=== PATIENT | male | born 1990 | race Caucasian/White ===

== ENCOUNTER 2022-12-18 18:36 | Emergency (ER) | payer SELFPAY ==
--- NOTE | 2022-12-18 18:39 | ED.LOWEXIN ---
HPI - Extremity Injury (Lower) General Chief Complaint: Extremity Injury, Lower Stated Complaint: rt ankle injury while playing basketball Time Seen by Provider: 12/18/22 18:39 History of Present Illness HPI Narrative: 32-year-old male with noncontributory medical history presents with a significant other and a chief complaint right foot and ankle pain since an injury while playing basketball earlier today. He was playing with some friends and stepped awkwardly on his right foot and ankle and rolled it laterally and felt a sharp and stabbing pain on the dorsum of his foot and his ankle. Denies any history of the same. Denies any knee or hip pain. Denies numbness, tingling or weakness. His pain is worse when he ambulates and improves with rest. He denies dizziness, weakness or lightheadedness. He has no chest pain or shortness of breath. Denies abdominal pain, nausea, vomiting or diarrhea. Related Data Allergies Allergy/AdvReac Type Severity Reaction Status Date / Time No Known Drug Allergies Allergy Verified 12/18/22 18:46 Review of Systems Review of Systems Narrative: GENERAL: Denies chills, fatigue, malaise, fever, sweats. HEENT: Denies sinus pain, ear pain, sore throat, difficulty swallowing, dizziness. RESPIRATORY: Denies dyspnea, cough, wheezing, hemoptysis, sputum. CARDIOVASCULAR: Denies chest pain, palpitations, orthopnea, edema, GASTROINTESTINAL: Denies nausea, vomiting, abdominal pain, diarrhea, constipation, melena. : Denies dysuria, frequency, incontinence, hematuria, urinary retention. MUSCULOSKELETAL: See HPI SKIN: Denies rash, skin lesions, or other NEUROLOGIC: Denies weakness, headache, numbness, change in speech, confusion, seizures, incoordination. PSYCHIATRIC: No concerning psychosocial issues. 12 point review of systems is negative except for those stated above Patient History Social History Smoking Status: Current every day smoker Exam Narrative Exam Narrative: GEN: AOx3 and in mild distress EYES: Pupils are equal, round, and reactive to light and accommodation. Extraoccular muscles are intact bilaterally. There is no subconjunctival hemorrhage or exudate. CHEST: Lungs are clear to auscultation bilaterally and free of wheezes, rales, or rhonchi. Heart rate is regular rhythm, there are no murmurs, clicks, rubs, or gallops. There is no chest wall tenderness. ABD: Abdomen is soft and nontender. There is no guarding or rebound. Bowel sounds are normal in all 4 quadrants. There is no mass or organomegaly. EXT: No obvious deformity or swelling. Patient reports tenderness to palpation on dorsum of the foot, there is no erythema or obvious edema. Sensation and cap refill are intact. There is no pain over talus, medial or lateral malleolus. No pain with squeeze test. No pain on palpation or range of motion of knee. SKIN: Warm, pink, and dry. No erythema or rash Initial Vital Signs Initial Vital Signs: Vital Signs Temperature 98.9 F 12/18/22 18:43 Pulse Rate 101 H 12/18/22 18:43 Respiratory Rate 18 12/18/22 18:43 Blood Pressure 131/83 12/18/22 18:43 Pulse Oximetry 98 12/18/22 18:43 Oxygen Delivery Method Room Air 12/18/22 18:43 Procedures Orthopedic Splinting/Casting Injury #1: Side: right Lower Extremity Injury Location: ankle and foot Lower Extremity Immobilizer: boot orthosis Other Orthopedic Equipment: crutches Post splinting neuro exam: intact Post splinting vascular exam: intact Placed by: Nursing MDM - Extremity Injury (Lower) MDM Narrative Medical decision making narrative: [32] year old patient presents with foot and ankle pain after injury Multiple etiologies for patient's symptoms considered including, but not limited to: [Fracture, sprain, dislocation versus other] No Prior Charts available for review Primary Historian: patient Imaging reviewed: No fracture or dislocation noted Patient's symptoms improved over duration of stay with above-stated therapies. Findings and discharge diagnosis discussed with patient/family followed by verbalization of understanding Return precautions discussed with patient/family whom verbalize understanding of diagnosis and plan Discharge Plan Departure Patient Disposition: Home Clinical Impression: Ankle sprain and strain, Foot sprain Instructions: Ankle Sprain, DI for Foot Sprain Activity Restrictions/Additional Instructions: *You have been diagnosed with [sprain of foot and ankle with a low likelihood of a high ankle sprain. As we discussed there was no obvious fracture or dislocation on the images] *What to do: *Please continue to take your regular medications as directed. [ ] New medication prescriptions sent to your pharmacy: [ ] [ ] New medication written as a paper prescription [x] Tylenol and occasional Motrin for pain *Please follow up with [ Juan Miguel] of [facility] in 2-3 days, call for an appointment. Let them know you were seen in the Emergency Department and that we ask that you be seen in follow up. We will electronically transmit a record of today's note if your PCP is in our system *Return to Emergency Department if you should have any new, worsening or concerning symptoms, such as [worsening pain, significant swelling, cold extremities, numbness, tingling, weakness or other bothersome symptoms Weight bearing as tolerated Radiographic study has been interpreted by an emergency physician. The official diagnosis by radiology will be performed within the next 24 hours and should there be any change in outcome we will notify you of how to proceed. Referrals: Pippa Bullard MD [Physician] - Stand Alone Forms: Patient Portal/API, Work Release Note
--- NOTE | 2022-12-18 18:41 | DI.RAD.S_ITS ---
PROCEDURE: XR FOOT RT MIN 3V INDICATIONS: injured playing basketball, dorsum of foot TECHNIQUE: 4 views of the foot were acquired. COMPARISON: None. FINDINGS: Bones: No fractures or dislocations. No suspicious bony lesions. Soft tissues: No tibiotalar joint effusion. Achilles tendon appears normal. IMPRESSION: Acute osseous findings. Dictated by: Titi Sutton M.D. on 12/18/2022 at 18:13 Approved by: Titi Sutton M.D. on 12/18/2022 at 18:18
--- NOTE | 2022-12-18 18:41 | DI.RAD.S_ITS ---
PROCEDURE: XR ANKLE RT MIN 3V INDICATIONS: inverted ankle playing basketball TECHNIQUE: 3 views of the ankle were acquired. COMPARISON: None. FINDINGS: Bones: No fractures or dislocations. Ankle mortise is normally aligned. No suspicious bony lesions. Soft tissues: No tibiotalar joint effusion. Achilles tendon appears normal. IMPRESSION: No acute osseous findings. Dictated by: Titi Sutton M.D. on 12/18/2022 at 18:11 Approved by: Titi Sutton M.D. on 12/18/2022 at 18:13
[2022-12-18 18:43] VITALS: BP 131/83; PULSE 101; RESP 18; TEMP 37.2; O2SAT 98; BMI 39.5
== END 2022-12-18 19:26 | disposition home or self-care (01) ==
PROVIDERS: Emergency Provider Emergency Medicine
DX: S93.401A Sprain of unspecified ligament of right ankle, initial encounter (principal); S93.601A Unspecified sprain of right foot, initial encounter; X50.1XXA Overexertion from prolonged static or awkward postures, initial encounter; Y93.67 Activity, basketball
CPT/HCPCS: 73610; 73630; 99283

== ENCOUNTER 2024-12-21 08:02 | Emergency (ER) | payer SELFPAY ==
[2024-12-21] VITALS (7 sets, daily range): BP systolic 123–129; BP diastolic 72–94; PULSE 66–78; RESP 11–22; TEMP 36.4; O2SAT 95–97; BMI 37.2
--- NOTE | 2024-12-21 08:14 | EKG_ITS ---
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
--- NOTE | 2024-12-21 08:14 | DI.RAD.S_ITS ---
PROCEDURE: XR CHEST 1V INDICATIONS: Chest Pain TECHNIQUE: One view of the chest was acquired. COMPARISON: None. FINDINGS: Surgical changes and devices: None. Lungs and pleura: Lungs are clear. No pleural effusions or pneumothorax. Mediastinum: Mediastinal contours appear normal. Heart size is normal. Bones and chest wall: No suspicious bony lesions. Overlying soft tissues appear unremarkable. IMPRESSION: No acute cardiopulmonary abnormality is seen. Dictated by: Aleksey Wilder M.D. on 12/21/2024 at 8:54 Approved by: Aleksey Wilder M.D. on 12/21/2024 at 8:55
--- NOTE | 2024-12-21 08:24 | ED_ITS ---
HPI - Chest Pain General Chief Complaint: Chest Pain Stated Complaint: Heart pain x a month and a half Time Seen by Provider: 12/21/24 08:24 History of Present Illness HPI narrative: Patient is a 34-year-old male without significant past medical history presenting today with left-sided chest pain. He reports that he was a long-time smoker but quit last week. He says he has sharp stabbing pain on the left side of his chest ongoing for about 1 month. It is definitely worse when he is at rest. 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 He denies any significant shortness of breath. He does report significant family history of mother had stroke and heart attacks at age 30 he has had cousins of blood clot at age 18. He does not have a primary care provider. Left-sided chest pain lasts for seconds seems to be worse with movement coughing sneezing and palpation Related Data Allergies Allergy/AdvReac Type Severity Reaction Status Date / Time No Known Drug Allergies Allergy Verified 12/18/22 18:46 Patient History alcohol intake frequency: other Exam Initial Vital Signs Initial Vital Signs: Vital Signs Temperature 97.6 F 12/21/24 08:10 Pulse Rate 74 12/21/24 08:10 Respiratory Rate 16 12/21/24 08:10 Blood Pressure 129/89 12/21/24 08:10 Pulse Oximetry 97 12/21/24 08:10 Oxygen Delivery Method Room Air 12/21/24 08:10 GENERAL: Alert pleasant 34-year-old male and in no acute distress. HEENT: Head atraumatic,EOMI, pupils reactive, face symmetric, moist mucous membranes CARDIOVASCULAR: Regular rate and rhythm without murmurs, rubs or gallops. Chest pain is reproducible on left pectoral muscle RESPIRATORY: Breath sounds equal bilaterally, no wheezes rales or rhonchi. ABDOMEN: Soft, nontender. Normoactive bowel sounds all 4 quadrants. No guarding or rebound. EXTREMITIES: Normal range of motion, no clubbing or edema. Neurovascularly intact NEUROLOGICAL: Alert and oriented x4.Normal gait and speech. Cranial nerves II through XII grossly intact. SKIN: Warm, dry, no laceration, no petechiae, no rashes or lesions. Scores HEART Score Heart Score history: Slightly Suspicious Heart Score EKG: Normal Heart Score Age: < 45 years old Heart Score risk factors: 1-2 risk factors Heart Score troponin: < or = to normal limit Heart Score Total: 1 Course Orders Ordered: ED Orders 12/21/24 08:14 XR chest 1V Stat EKG-12 Lead Stat RT Consult Eval and Treat NOW 12/21/24 08:44 Complete Blood Count AUTO DIFF Stat Comprehensive Metabolic Panel Stat D Dimer Stat Lactate (Lactic Acid) Stat Lipase Stat Magnesium Stat NT-proBNP (BNP-Adult 18+) Stat PTT Partial Thromboplastin Morgan Stat Prothrombin Time INR Stat Troponin & CK Cardiac Panel Stat Discontinued Medications Aspirin (Aspirin 81 Mg Chew Tab) 324 mg PO NOW ONE Stop: 12/21/24 08:15 Last Admin: 12/21/24 08:34 Dose: Not Given Documented By: CHICHI Ketorolac Tromethamine (Ketorolac 30 Mg/Ml Vial) 15 mg IV NOW ONE Stop: 12/21/24 08:29 Last Admin: 12/21/24 08:51 Dose: 15 mg Documented By: CANDACE Vital Signs Vital signs: Vital Signs - 8 hr 12/21/24 08:10 12/21/24 08:12 12/21/24 08:30 Temperature 97.6 F Pulse Rate 74 73 Respiratory Rate 16 Blood Pressure 129/89 123/77 Pulse Oximetry 97 96 Oxygen Delivery Method Room Air 12/21/24 08:30 12/21/24 09:00 12/21/24 09:00 Temperature Pulse Rate 70 78 Respiratory Rate 11 L 19 Blood Pressure 128/89 Pulse Oximetry 96 95 Oxygen Delivery Method Room Air 12/21/24 09:30 12/21/24 09:31 12/21/24 09:31 Temperature Pulse Rate 75 74 Respiratory Rate 22 19 Blood Pressure 125/94 H Pulse Oximetry 95 96 Oxygen Delivery Method 12/21/24 10:00 12/21/24 10:00 Temperature Pulse Rate 66 Respiratory Rate 17 Blood Pressure 128/72 Pulse Oximetry 95 Oxygen Delivery Method MDM - Chest Pain Lab Data 12/21/24 08:44 12/21/24 08:44 Labs: Lab Results 12/21/24 Range/Units 08:44 WBC 10.2 (4.5-11.0) X10^3/uL RBC 5.08 (4.5-5.9) X10^6/uL Hgb 15.3 (13.5-17.5) g/dL Hct 44.5 (41-53) % MCV 87.6 (80-100) fL MCH 30.1 (26-34) PG MCHC 34.3 (30-36) % RDW 13.2 (11.6-14.8) % Plt Count 311 (150-400) X10^3/uL Neut % (Auto) 60.0 (50-75) % Lymph % (Auto) 31.7 (25-40) % [place] % (Auto) 4.9 (3-14) % Eos % (Auto) 2.4 (2-4) % Baso % (Auto) 1.0 (0-2) % Neut # (Auto) 6100 (6921-2756) /uL Lymph # (Auto) 3200 (4694-8209) /uL [place] # (Auto) 500 (0-900) /uL Eos # (Auto) 200 (0-450) /uL Baso # (Auto) 100 (0-100) /uL PT 10.5 (9.4-12.5) SECONDS INR 0.9 (0.9-1.3) APTT 37 H (25.1-36.5) SECONDS D-Dimer 429 (<500) ng/ml Sodium 138 (137-145) mmol/L Potassium 4.4 (3.4-5.1) mmol/L Chloride 107 (98-107) mmol/L Carbon Dioxide 21 L (22-32) mmol/L BUN 16 (9-20) mg/dL Creatinine 0.87 (0.66-1.25) mg/dL Estimated GFR > 60 (>60) mL/min BUN/Creatinine Ratio 18.4 (6-22) Glucose 105 H (70-99) mg/dL Lactate 1.3 (0.7-2.1) mmol/L Calcium 9.3 (8.4-10.2) mg/dL Magnesium 2.0 (1.6-2.3) mg/dL Total Bilirubin 0.6 (0.2-1.3) mg/dL AST 45 (17-59) IU/L ALT 83 H (<50) IU/L Alkaline Phosphatase 60 (38-126) U/L Total Creatine Kinase 68 (55-170) U/L Troponin I < 0.012 (0.01-0.034) ng/mL NT-Pro-B Natriuret Pep < 20 (<125) pg/mL Total Protein 8.1 (6.3-8.2) g/dL Albumin 4.7 (3.5-5.0) g/dL Globulin 3.4 (1.7-4.1) g/dL Albumin/Globulin Ratio 1.4 (1.0-2.8) Lipase 124 (23-300) U/L Imaging Data Chest x-ray: Radiologist's Impression: PROCEDURE: XR CHEST 1V INDICATIONS: Chest Pain TECHNIQUE: One view of the chest was acquired. COMPARISON: None. FINDINGS: Surgical changes and devices: None. Lungs and pleura: Lungs are clear. No pleural effusions or pneumothorax. Mediastinum: Mediastinal contours appear normal. Heart size is normal. Bones and chest wall: No suspicious bony lesions. Overlying soft tissues appear unremarkable. IMPRESSION: No acute cardiopulmonary abnormality is seen. Dictated by: Aleksey Wilder M.D. on 12/21/2024 at 8:54 ECG Data Attestation: I personally reviewed and interpreted this ECG as follows: Interpretation: Normal sinus rhythm rate 71 AR interval 174 QRS [address] changes no T- wave inversion MDM Narrative Medical decision making narrative: Patient is a 34-year-old male significant personal past medical history presenting today with left-sided chest pain. He has been off and on for about a month worse at rest and reproducible with palpation and movement. He does have significant risk factors including family history and he was a smoker.He has a heart score of 1. blood work has been reviewed CBC no leukocytosis no anemia no thrombocytopenia CMP no electrolyte abnormality no ROCHELLE glucose 105 Bilirubin liver enzymes within normal limits D-dimer less than 500 EKGs reviewed no acute ischemia Chest x-ray no acute cardiopulmonary process Patient was given Toradol here in the ED which did help some. Patient was having left-sided chest pain which is reproducible suggestive of musculoskeletal rather than acute coronary syndrome. D-dimer is nondetectable, PE ruled out with year score. He reports that he quit smoking a week ago encouraged him to continue to cessation of tobacco. Also talked about insurance and getting a primary care provider. YEARS Algorithm for Pulmonary Embolism (PE) from [employer] on 12/21/2024 All calculations should be rechecked by clinician prior to use RESULT SUMMARY: PE excluded YEARS algorithm rules out PE (0.43% with symptomatic VTE during 3-month follow- up) INPUTS: patient ?> 0 = No Clinical signs of DVT ?> 0 = No Hemoptysis ?> 0 = No PE most likely diagnosis ?> 0 = No D-dimer >=,000 ng/mL FEU ?> 0 = No Discharge Plan Departure Patient Disposition: Home Clinical Impression: Atypical chest pain Instructions: DI for Atypical Chest Pain Activity Restrictions/Additional Instructions: *You have been diagnosed with atypical chest pain *What to do: At this time please follow-up with a primary care provider. You may require further testing based on your family history. *Continue to take medications as directed *Follow up with your primary care provider in 2-3 days or call [phone] *Return to ER if you should have increasing chest pain shortness of breath weak or any new, worsening or concerning symptoms Stand Alone Forms: Patient Portal/API/Survey
[2024-12-21] MEDS: KETOROLAC 30 MG/ML VIAL 15 MG IV (08:51)
[2024-12-21 08:56] LABS: Add Manual Diff / Slide Review NO; Basophils Absolute Auto 100 /uL (0-100); Eosinophils Absolute Auto 200 /uL (0-450); Eosinophils Percent Auto 2.4 % (2-4); Hematocrit 44.5 % (41-53); Hemoglobin 15.3 g/dL (13.5-17.5); Lymphocytes Absolute Auto 3200 /uL (1100-4500); Lymphocytes Percent Auto 31.7 % (25-40); Mean Corpuscular HGB Conc 34.3 % (30-36); Mean Corpuscular Hemoglobin 30.1 PG (26-34); Mean Corpuscular Volume 87.6 fL (80-100); Monocytes Absolute Auto 500 /uL (0-900); Monocytes Percent Auto 4.9 % (3-14); Neutrophils Absolute Auto 6100 /uL (1500-7000); Platelet Count 311 X10^3/uL (150-400); Red Blood Cell Count 5.08 X10^6/uL (4.5-5.9); Red Cell Distribution Width 13.2 % (11.6-14.8); White Blood Cell Count 10.2 X10^3/uL (4.5-11.0)
[2024-12-21 09:02] LABS: INR 0.9 (0.9-1.3); Prothrombin Time 10.5 SECONDS (9.4-12.5)
[2024-12-21 09:05] LABS: PTT Partial Thromboplastin Tim 37 SECONDS (25.1-36.5)
[2024-12-21 09:06] LABS: Alanine Aminotransferase 83 IU/L (<50); Albumin 4.7 g/dL (3.5-5.0); Albumin Globulin Ratio 1.4 (1.0-2.8); Alkaline Phosphatase 60 U/L (38-126); Aspartate Aminotransferase 45 IU/L (17-59); BUN Creatinine Ratio 18.4 (6-22); Bilirubin Total 0.6 mg/dL (0.2-1.3); Blood Urea Nitrogen 16 mg/dL (9-20); Calcium 9.3 mg/dL (8.4-10.2); Carbon Dioxide 21 mmol/L (22-32); Chloride 107 mmol/L (98-107); Creatine Kinase 68 U/L (55-170); Estimated Glomerular Filt Rate > 60 mL/min (>60); Globulin 3.4 g/dL (1.7-4.1); Glucose 105 mg/dL (70-99); HEMOLYSIS < 15 (0-50); Lipase 124 U/L (23-300); Potassium 4.4 mmol/L (3.4-5.1); Sodium 138 mmol/L (137-145); Total Protein 8.1 g/dL (6.3-8.2)
[2024-12-21 09:07] LABS: Lactate (Lactic Acid) 1.3 mmol/L (0.7-2.1)
[2024-12-21 09:12] LABS: D Dimer 429 ng/ml (<500)
[2024-12-21 09:18] LABS: NT-proBNP (BNP-Adult 18+) < 20 pg/mL (<125); Troponin I < 0.012 ng/mL (0.01-0.034)
== END 2024-12-21 10:10 | disposition home or self-care (01) ==
PROVIDERS: Emergency Provider Emergency Medicine
DX: R07.89 Other chest pain (principal); Z87.891 Personal history of nicotine dependence; Z82.49 Family history of ischemic heart disease and other diseases of the circulatory system
CPT/HCPCS: 36415; 71045; 80053; 82550; 83605; 83690; 83735; 83880; 84484; 85025; 85379; 85610; 85730; 93005; 93010; 96374; 99284; J1885